=== PATIENT | male | born 1965 | race Two or more races ===

== ENCOUNTER 2018-11-07 18:15 | Emergency (ER) | payer OTHER ==
[~2018-11-07] VITALS: Ht 170.2 cm; Wt 68.0 kg
--- NOTE | 2018-11-07 19:07 | NUR ---
DR. DUKE AT BEDSIDE FOR MSE.
[2018-11-07] MEDS ORDERED: NEOMY/BACITRA/POLYMYXIN B OINT UD PACKET TP ONE ×2 (19:30→19:35)
[2018-11-07 19:38] LABS: BASOPHILS # (AUTO) 0.1 K/uL (0.0-8.0); BASOPHILS % (AUTO) 2.6 % (0.0-2.0); EOSINOPHILS % (AUTO) 0.1 % (0.0-7.0); HEMATOCRIT 35.7 % (36.7-47.1); HEMOGLOBIN 11.9 g/dL (12.5-16.3); LYMPHOCYTES # (AUTO) 0.9 K/uL (20.0-40.0); LYMPHOCYTES % (AUTO) 24.7 % (20.5-51.5); MEAN CORPUSCULAR HEMOGLOBIN 28.7 uug (23.8-33.4); MEAN CORPUSCULAR HGB CONC 33 g/dL (32.5-36.3); MEAN CORPUSCULAR VOLUME 86.5 fL (73.0-96.2); MONOCYTES # (AUTO) 0.2 K/uL (2.0-10.0); MONOCYTES % (AUTO) 6.3 % (0.0-11.0); NEUTROPHILS # (AUTO) 2.5 K/uL (1.8-8.9); NEUTROPHILS % (AUTO) 66.3 % (38.5-71.5); PLATELET COUNT (AUTO) 178 K/uL (152-348); RED BLOOD CELL COUNT(AUTO) 4.13 MIL/uL (4.06-5.63); WHITE BLOOD COUNT (AUTO) 3.8 K/uL (3.6-10.2)
[2018-11-07 19:51] LABS: CARBON DIOXIDE 29 mmol/L (21-32); CHLORIDE 105 mmol/L (98-107); CREATININE 0.5 mg/dL (0.6-1.3); GLUCOSE 96 mg/dL (74-106); POTASSIUM 3.7 mmol/L (3.5-5.1); UREA NITROGEN, BLOOD 8 mg/dL (7-18)
[2018-11-07 19:57] LABS: ALANINE AMINOTRANSFERASE 52 U/L (16-63); ALKALINE PHOSPHATASE 155 U/L (50-136); ASPARTATE AMINOTRANSFERASE 90 U/L (15-37); BILIRUBIN,DIRECT 0.3 mg/dL (0.0-0.2); BILIRUBIN,TOTAL 0.7 mg/dL (0.2-1.0); TOTAL PROTEIN, SERUM 8.2 g/dL (6.4-8.2)
--- NOTE | 2018-11-07 20:00 | NUR ---
PATIENT ASLEEP, RESPIRATIONS EVEN AND UNLABORED.
--- NOTE | 2018-11-07 21:00 | NUR ---
PATIENT ASLEEP, RESPIRATIONS EVEN AND UNLABORED.
[2018-11-07] MEDS ORDERED: MORPHINE SULFATE 2 MG/1 ML DISP.SYRIN IV ONE (22:00)
[2018-11-07] MEDS ORDERED: IV NORMAL SALINE 1000 ML BAG IV ONE (23:45)
--- NOTE | 2018-11-08 05:14 | NUR ---
PATIENT AWAKE AT THIS, ATTEMTPTING TO LEAVE. NOTIFIED. DC INSTRUCTIONS PROVIDED BY . IV DC'D, CATHETER INTACT. PATIENT REFUSES HOMELESS RESOURCES.
--- NOTE | 2018-11-08 05:20 | NUR ---
Patient discharged to home in stable conditon. Written and verbal after care instructions given. Patient verbalizes understanding of instructions.
[2018-11-08 05:21] VITALS: BP 113/76
== END 2018-11-08 05:23 | disposition home or self-care (01) ==
LOC: ER 18:20
DX: S05.32XA Ocular laceration without prolapse or loss of intraocular tissue, left eye, initial encounter (principal); F10.129 Alcohol abuse with intoxication, unspecified; X58.XXXA Exposure to other specified factors, initial encounter; Y93.89 Activity, other specified; Y92.89 Other specified places as the place of occurrence of the external cause; Y99.8 Other external cause status; Y90.9 Presence of alcohol in blood, level not specified
CPT/HCPCS: 36415; 70450; 72125; 80048; 80076; 82962; 84484; 85025; 85730; 93005; 99284; G0480; 70030-TC; A4663; J7030

== ENCOUNTER 2018-11-08 06:42 | Emergency (ER) | payer OTHER ==
--- NOTE | 2018-11-08 06:50 | NUR ---
PATIENT WAS SEEN AND TX EARLIER TODAY. CAME BACK REQUESTINGING FOR CRUTCHES.PATIENT REFUSED TO BE TRIAGED ONLY REQUESTING CRUTCHES. DR BOLDEN ORDERED CRUTCHES. PATIENT LEFT WITHOUT BEING TRIAGED
== END 2018-11-08 06:51 | disposition left against medical advice (07) ==
LOC: ER 06:45
DX: Z53.21 Procedure and treatment not carried out due to patient leaving prior to being seen by health care provider (principal)

== ENCOUNTER 2018-11-09 19:57 | Emergency (ER) | payer OTHER ==
[~2018-11-09] VITALS: Ht 172.7 cm; Wt 77.1 kg
--- NOTE | 2018-11-09 20:25 | NUR ---
Dr. Delaney at bedside for MSE.
--- NOTE | 2018-11-09 20:45 | NUR ---
Xray at bedside.
[2018-11-09 21:21] LABS: BASOPHILS % (AUTO) 1.3 % (0.0-2.0); EOSINOPHILS % (AUTO) 0.4 % (0.0-7.0); HEMATOCRIT 27.6 % (36.7-47.1); HEMOGLOBIN 9.4 g/dL (12.5-16.3); LYMPHOCYTES # (AUTO) 1.3 K/uL (20.0-40.0); LYMPHOCYTES % (AUTO) 34.9 % (20.5-51.5); MEAN CORPUSCULAR HEMOGLOBIN 29.5 uug (23.8-33.4); MEAN CORPUSCULAR HGB CONC 34 g/dL (32.5-36.3); MEAN CORPUSCULAR VOLUME 86.6 fL (73.0-96.2); MONOCYTES # (AUTO) 0.4 K/uL (2.0-10.0); MONOCYTES % (AUTO) 11.6 % (0.0-11.0); NEUTROPHILS # (AUTO) 1.9 K/uL (1.8-8.9); NEUTROPHILS % (AUTO) 51.8 % (38.5-71.5); PLATELET COUNT (AUTO) 112 K/uL (152-348); RED BLOOD CELL COUNT(AUTO) 3.18 MIL/uL (4.06-5.63); WHITE BLOOD COUNT (AUTO) 3.6 K/uL (3.6-10.2)
[2018-11-09 21:28] LABS: CREATININE 0.9 mg/dL (0.6-1.3); POTASSIUM 3.3 mmol/L (3.5-5.1)
--- NOTE | 2018-11-09 23:49 | NUR ---
Pt sleeping in bed, no acute signs of distress.
--- NOTE | 2018-11-10 02:12 | NUR ---
Pt sleeping in bed, no acute signs of distress.
--- NOTE | 2018-11-10 03:46 | NUR ---
Pt sleeping in bed, no acute signs of distress.
--- NOTE | 2018-11-10 05:19 | NUR ---
Pt sleeping in bed, no acute signs of distress.
--- NOTE | 2018-11-10 06:24 | NUR ---
Pt sleeping in bed, no acute signs of distress.
--- NOTE | 2018-11-10 07:07 | NUR ---
Report given to Liza francis.
--- NOTE | 2018-11-10 07:43 | NUR ---
0735- Patient is medically cleared by Dr Ross for discharge. Patient was given written and verbal discharge instructions. Patient verbalizes understanding of instructions. Patient is ambulatory with crutches provided from this ER department. Patient refuses offer of prison placement & social media intern's assistance from our ER department. Patient was also given a list of available shelters in surrounding area. Crutches dispensed per patient's request. Pt was instructed on proper use of crutches. Patient was able to demonstrate correct use of crutches. New clean clothes (e.g. long pants, shirt & socks) were provided as well. Patient signed the Homeless Patient Waiver Form ([id number]).
== END 2018-11-10 07:38 | disposition home or self-care (01) ==
LOC: ER 19:58
DX: F10.129 Alcohol abuse with intoxication, unspecified (principal); M79.604 Pain in right leg; M79.605 Pain in left leg; Z59.0 Homelessness; Y90.8 Blood alcohol level of 240 mg/100 ml or more
CPT/HCPCS: 36415; 73610 ×2; 80048; 85025; 99284; G0480; A4663

== ENCOUNTER 2020-10-22 13:00 | Emergency (ER) | payer OTHER ==
[~2020-10-22] VITALS: Ht 165.1 cm; Wt 45.4 kg
--- NOTE | 2020-10-22 13:47 | NUR ---
MD at bedside at this time
[2020-10-22] MEDS ORDERED: IV NORMAL SALINE 1000 ML BAG IV ONE (14:00)
--- NOTE | 2020-10-22 14:18 | NUR ---
uNABLE TO START AN IV, LABS WERE DRAWN BY TECH. HUA NOTIFIED.
[2020-10-22 14:24] LABS: CREATININE 0.9 mg/dL (0.6-1.3); POTASSIUM 3.3 mmol/L (3.5-5.1)
[2020-10-22 14:26] LABS: BASOPHILS % (AUTO) 1.8 % (0.0-2.0); HEMATOCRIT 30.9 % (36.7-47.1); LYMPHOCYTES # (AUTO) 0.7 K/uL (20.0-40.0); LYMPHOCYTES % (AUTO) 30.5 % (20.5-51.5); MEAN CORPUSCULAR HEMOGLOBIN 27.9 uug (23.8-33.4); MEAN CORPUSCULAR HGB CONC 32 g/dL (32.5-36.3); MEAN CORPUSCULAR VOLUME 86.1 fL (73.0-96.2); MONOCYTES # (AUTO) 0.2 K/uL (2.0-10.0); MONOCYTES % (AUTO) 9.9 % (0.0-11.0); NEUTROPHILS # (AUTO) 1.4 K/uL (1.8-8.9); NEUTROPHILS % (AUTO) 56.8 % (38.5-71.5); PLATELET COUNT (AUTO) 131 K/uL (152-348); RED BLOOD CELL COUNT(AUTO) 3.59 MIL/uL (4.06-5.63); WHITE BLOOD COUNT (AUTO) 2.4 K/uL (3.6-10.2)
[2020-10-22 14:32] LABS: BILIRUBIN,DIRECT 0.5 mg/dL (0.0-0.2); BILIRUBIN,TOTAL 0.9 mg/dL (0.2-1.0); TOTAL PROTEIN, SERUM 7.3 g/dL (6.4-8.2)
--- NOTE | 2020-10-22 14:51 | NUR ---
PATIENT VERBALLY AGGRESSIVE AND ATTEMPTED TO GET OUT OF BED AFTER URINATING ON THE BED. REDIRECTED PATIENT BACK TO BED AFTER CHANGING LINEN AND CLEANING THE BED. CHANGED PATIENT GOWN. ATTEMPTED TO REPLACE TELEMETRY MONITORING AND SPO2 MONITORING. PATIENT REFUSED.
[2020-10-22 15:10] LABS: BAND % (MANUAL) 0 % (0-10); BASOPHILS % (MANUAL) 0 % (0-2); EOSINOPHILS % (MANUAL) 2 % (0-8); LYMPHOCYTES % (MANUAL) 30 % (20-40); MONOCYTES % (MANUAL) 4 % (2-10); NEUTROPHILS % (MANUAL) 64 % (42-75)
--- NOTE | 2020-10-22 15:52 | NUR ---
Patient is now sleeping. Refuses any IV insertion or medications. However, unable to ambulate in steady gait and not fully alert. VS stable as recorded. Safety measures maintained.
--- NOTE | 2020-10-22 18:02 | NUR ---
Pt woke up and patient is asking for dinner. Pt wet himself on the bed, linen change done. Gown also changed and dinner provided.
--- NOTE | 2020-10-22 18:24 | NUR ---
Verbal order received for blood glucose check: [id number]
--- NOTE | 2020-10-22 19:02 | NUR ---
Report given to Dayne BUSTOS.
[2020-10-22 20:13] LABS: *AMPHETAMINE, URINE NEGATIVE (NEGATIVE); *CANNABINOID, URINE NEGATIVE (NEGATIVE); *COCCAINE, URINE NEGATIVE (NEGATIVE); *OPIATE, URINE POSITIVE (NEGATIVE); *PHENCYCLIDINE SCREEN,URINE NEGATIVE (NEGATIVE)
[2020-10-22] MEDS ORDERED: THIAMINE HCL 100 MG TABLET PO ONE (20:15)
[2020-10-22] MEDS ORDERED: CYANOCOBALAMIN 1000 MCG/ML VIAL IM ONE (20:15)
[2020-10-22] MEDS ORDERED: POTASSIUM CHLORIDE 20 MEQ TAB.PRT.SR PO ONE (20:15)
[2020-10-22 20:38] LABS: IRON, SERUM 182 ug/dL (50-175)
[2020-10-22] MEDS ORDERED: CYANOCOBALAMIN 1000 MCG/ML VIAL ONE (20:40)
[2020-10-22] MEDS ORDERED: THIAMINE HCL 100 MG TABLET ONE (20:41)
[2020-10-22] MEDS ORDERED: POTASSIUM CHLORIDE 20 MEQ TAB.PRT.SR ONE (20:41)
--- NOTE | 2020-10-22 22:00 | NUR ---
Patient beginning to climb out of bed - asking for belongings - saying he "has to go get a drink". Educated patient as to importance of staying in hospital, getting treatment, and not drinking alcohol. Patient was able to be redirected momentarily but is still adamant about leaving.
--- NOTE | 2020-10-22 22:55 | NUR ---
Patient became combative, ripped his condom catheter off, and demanded to be let out. Started walking out the door. Was educated as to importance of medical care and he still refused. Signed out AMA at this time.
[2020-10-22 23:01] VITALS: BP 115/70
--- NOTE | 2020-10-22 23:02 | NUR ---
VSS. Stable condition. Advised to stay and get treatment. Refused multiple times.
== END 2020-10-22 23:03 | disposition left against medical advice (07) ==
LOC: ER 13:00
DX: D61.818 Other pancytopenia (principal); R41.82 Altered mental status, unspecified; F10.229 Alcohol dependence with intoxication, unspecified; Y90.7 Blood alcohol level of 200-239 mg/100 ml; E87.6 Hypokalemia; R05 Cough; Z20.822 Contact with and (suspected) exposure to COVID-19; F11.10 Opioid abuse, uncomplicated; F13.10 Sedative, hypnotic or anxiolytic abuse, uncomplicated; G31.9 Degenerative disease of nervous system, unspecified
CPT/HCPCS: 36415; 70450; 71045; 80048; 80076; 80307; 80320; 82607; 83550; 83735; 85007; 85025; 87426; 99284; J3420; 70030-TC; A4663; G0480; J7030